=== PATIENT | female | born 1990 | race Caucasian/White ===

== ENCOUNTER → 2016-06-11 | Outpatient (CLI) | payer MEDICAID ==
--- NOTE | 2016-06-11 12:20 | ECHOS ---
DATE OF SERVICE: 06/11/2016 AGE: 25Y SEX: F HT: 59" WT: 145 lbs. Protocol Vahid: X Others: Stress Echo Stage: III Dur. of Exercise: 9 minutes *Heart Rate Blood Pressure *Rest: 98 Rest: 103/66 * *Max. Achieved: 171 Maximum BP: 188/44 85% PMHR: 165 100% PMHR: 194 *METS: 8.3 INDICATIONS: Chest pain and palpitations. MEDICATIONS: Mrs. Bunch is a 25-year-old female being evaluated for symptoms of palpitation and chest pain. Baseline EKG showed sinus rhythm with heart rate of 98 and blood pressure 103/66. Patient walked on the Vahid protocol for 9 minutes, achieving a maximum heart rate 171 with blood pressure of 188/44. EKGs taken during and after exercise did not reveal any significant changes from the baseline. There was significant artifacts on the EKG and also there is difficulty in acquiring echo images. ECHO DATA: Baseline echo images show normal wall motion and thickening. Exercise echo images showed augmentation wall motion and thickening in all the segments in spite of difficulty acquiring the images because of EKG artifacts. FINAL IMPRESSION: 1. Negative stress test. 2. Negative stress echo.
== END | disposition home or self-care (01) ==
LOC: RADNMMAIN 10:01
PROVIDERS: ATTEND Family Medicine
DX: R00.2 Palpitations (principal)
CPT/HCPCS: 93017; 93225; 93226; 93350

== ENCOUNTER 2016-08-24 22:34 | Emergency (ER) | payer MEDICAID ==
[2016-08-25] MEDS ORDERED: IPRATROPIUM-ALBUTEROL 3 ML NEB INHALATION STA (00:33)
--- NOTE | 2016-08-25 00:49 | ED ---
General Adult HPI - General Chief complaint: Chest Pain Stated complaint: Chest Pain Time Seen by Provider: 08/25/16 00:19 Source: patient, RN notes reviewed Mode of arrival: ambulatory Limitations: no limitations - History of Present Illness Initial comments: Patient is a 26-year-old female presents to the emergency room for evaluation of cough, congestion and chest pain. Patient states symptoms began today. Patient states she also has a sore throat. Patient states also had a constant dry cough. Patient states been developing midsternal chest pain is worse with deep breaths and coughing. Patient states been taking cough medicine with no relief of symptoms. Patient states she feels short of breath after coughing. Patient states the pain is worse every time she coughs or swallows. Patient denies abdominal pain, nausea vomiting. Patient does state she has a headache. Patient denies dizziness. Patient denies ear pain. Patient states she is up- to-date on all immunizations besides influenza vaccine. Patient states she has have a history of chest pain and palpitations. Patient states she saw her primary care provider about a month ago and had a Holter monitor, echocardiogram and stress test with no abnormal findings. Patient denies fevers or chills. - Related Data Home Medications Medication Instructions Recorded Confirmed Atenolol [Tenormin] 25 mg PO DAILY 08/24/16 08/24/16 HYDROcodone/APAP 5-325MG [[place] 1 tab PO DIRECTED PRN 08/24/16 08/24/16 5-325] Previous Rx's Medication Instructions Recorded Azithromycin [Zithromax Z-pack] 250 mg PO DIRECTED #6 tab 08/25/16 Ibuprofen [Motrin] 600 mg PO Q6HR PRN #20 tab 08/25/16 methylPREDNISolone [Medrol Dose 4 mg PO DIRECTED #1 pack 08/25/16 Pack] Allergies Allergy/AdvReac Type Severity Reaction Status Date / Time No Known Allergies Allergy Verified 08/24/16 22:45 Review of Systems ROS Statement: Those systems with pertinent positive or pertinent negative responses have been documented in the HPI. ROS Other: All systems not noted in ROS Statement are negative. Past Medical History Past Medical History: No Reported History History of Any Multi-Drug Resistant Organisms: None Reported Past Surgical History: Orthopedic Surgery Additional Past Surgical History / Comment(s): lt wrist ,tumor lt breast Past Psychological History: No Psychological Hx Reported Smoking Status: Never smoker Past Alcohol Use History: Occasional Past Drug Use History: None Reported General Exam - General Exam Comments Initial Comments: Sitting in exam room, no acute distress. Limitations: no limitations General appearance: alert, in no apparent distress Head exam: Present: atraumatic, normocephalic, normal inspection Eye exam: Present: normal appearance ENT exam: Present: normal exam, normal oropharynx, mucous membranes moist, TM's normal bilaterally, normal external ear exam Neck exam: Present: normal inspection Respiratory exam: Present: normal lung sounds bilaterally. Absent: respiratory distress Cardiovascular Exam: Present: regular rate, normal rhythm, normal heart sounds GI/Abdominal exam: Present: soft, normal bowel sounds. Absent: distended, tenderness, guarding, rebound, rigid Extremities exam: Present: normal inspection Back exam: Present: normal inspection Neurological exam: Present: alert, oriented X3, CN II-XII intact, normal gait Psychiatric exam: Present: normal affect, normal mood Skin exam: Present: warm, dry, intact, normal color. Absent: rash Course Vital Signs 08/24/16 08/25/16 08/25/16 22:43 00:44 00:51 Temperature 98.9 F Pulse Rate 69 77 77 Respiratory 20 Rate Blood Pressure 126/86 O2 Sat by Pulse 99 Oximetry 08/25/16 01:55 Temperature 98.1 F Pulse Rate 68 Respiratory 18 Rate Blood Pressure 118/79 O2 Sat by Pulse 100 Oximetry Medical Decision Making - Medical Decision Making Patient is a 26-year-old female presents to the emergency room for evaluation of cough, sore throat and chest pain. Rapid influenza negative. Rapid strep negative. Chest x-ray shows no acute findings. Will treat patient for bronchitis. Patient be placed on azithromycin and Medrol Dosepak. Advised patient to return for worsening symptoms. Patient states she seems everything that was discussed with her. Case discussed with Dr. Amezquita who also evaluated patient. - Lab Data Result diagrams: 08/25/16 00:44 Lab Results 08/25/16 08/25/16 08/25/16 Range/Units 00:44 00:44 00:44 WBC 13.9 H (3.8-10.6) k/uL RBC 4.09 (3.80-5.40) m/uL Hgb 13.0 (11.4-16.0) gm/dL Hct 39.1 (34.0-46.0) % MCV 95.6 (80.0-100.0) fL MCH 31.8 (25.0-35.0) pg MCHC 33.3 (31.0-37.0) g/dL RDW 12.8 (11.5-15.5) % Plt Count 217 (150-450) k/uL Neutrophils % 71 % Lymphocytes % 21 % Monocytes % 4 % Eosinophils % 2 % Basophils % 0 % Neutrophils # 9.9 H (1.3-7.7) k/uL Lymphocytes # 2.9 (1.0-4.8) k/uL Monocytes # 0.5 (0-1.0) k/uL Eosinophils # 0.3 (0-0.7) k/uL Basophils # 0.1 (0-0.2) k/uL Influenza Type A RNA Not Detected (Not Detectd) Influenza Type B (PCR) Not Detected (Not Detectd) Group A Strep Rapid Negative (Negative) - Radiology Data Radiology results: report reviewed, image reviewed Disposition Clinical Impression: Bronchitis, Pharyngitis Disposition: HOME SELF-CARE Condition: Good Instructions: Acute Bronchitis (ED) Additional Instructions: Take antibiotics as directed. Take Medrol Dosepak as directed. Take ibuprofen as needed for pain. Please follow up with primary care provider in 1-2 days. If any new symptom arises or symptoms worsen, return to ER as soon as possible. Prescriptions: Ibuprofen [Motrin] 600 mg PO Q6HR PRN #20 tab PRN Reason: Pain Azithromycin [Zithromax Z-pack] 250 mg PO DIRECTED #6 tab methylPREDNISolone [Medrol Dose Pack] 4 mg PO DIRECTED #1 pack Referrals: Edilson Farias MD [Primary Care Provider] - 1-2 days Time of Disposition: 01:24
[2016-08-25 00:55] LABS: Basophils # (A) 0.1 k/uL (0-0.2); Basophils % (A) 0 %; CH 32.3; Eosinophils # (A) 0.3 k/uL (0-0.7); Eosinophils % (A) 2 %; HCT 39.1 % (34.0-46.0); HDW 2.64; Luc # (Auto) 0.16; Luc % (Auto) 1; Lymphocytes # (A) 2.9 k/uL (1.0-4.8); Lymphocytes % (A) 21 %; MCH 31.8 pg (25.0-35.0); MCHC 33.3 g/dL (31.0-37.0); MCV 95.6 fL (80.0-100.0); Mean Platelet Volume 7.8; Monocytes # (A) 0.5 k/uL (0-1.0); Monocytes % (A) 4 %; Neutrophils # (A) 9.9 k/uL (1.3-7.7); Neutrophils % (A) 71 %; RBC 4.09 m/uL (3.80-5.40); RDW 12.8 % (11.5-15.5); WBC 13.9 k/uL (3.8-10.6); WBC (Perox) 14.31
--- NOTE | 2016-08-25 01:08 | XR ---
EXAM: XR Chest, 2 Views. CLINICAL HISTORY: Reason: Pain TECHNIQUE: Frontal and lateral views of the chest. COMPARISON: No relevant prior studies available. FINDINGS: Lungs: Unremarkable. No consolidation. Pleural spaces: Unremarkable. No pneumothorax. Heart: Unremarkable. No cardiomegaly. Mediastinum: Unremarkable. Bones: Unremarkable. No acute fracture. IMPRESSION: Normal chest.
[2016-08-25] MEDS ORDERED: methylPREDNISolone 4 MG TAB PO STA (01:26)
[2016-08-25 01:56] VITALS: BP 118/79; PULSE 68; RESP 18; TEMP 98.1
== END 2016-08-25 01:56 | disposition home or self-care (01) ==
LOC: EC 22:34
DX: J40 Bronchitis, not specified as acute or chronic (principal); J02.9 Acute pharyngitis, unspecified; Z79.899 Other long term (current) drug therapy
CPT/HCPCS: 99285; 36415; 94640; 93005; 85025; 87081; 87430; 87502; 71020; J7509

== ENCOUNTER → 2017-03-23 | Outpatient (CLI) | payer MEDICAID ==
--- NOTE | 2017-03-23 10:43 | MR ---
EXAMINATION TYPE: MR knee LT wo con DATE OF EXAM: 03/23/2017 COMPARISON: Plain film 02/06/2016 HISTORY: Left knee pain TECHNIQUE: Multiplanar, multisequence imaging of the left knee is performed without IV contrast. FINDINGS: MEDIAL MENISCUS: Anterior and posterior horns are intact without tear. There is some intrasubstance s ignal seen in the posterior horn of the medial meniscus without clear extension to the articular surf mehul which may represent some mucoid degeneration. LATERAL MENISCUS: Anterior and posterior horns are intact without tear. CRUCIATE LIGAMENTS: The anterior and posterior cruciate ligaments are intact and unremarkable. COLLATERAL LIGAMENTS: The medial collateral ligament and lateral collateral ligament complex are inta ct and unremarkable. EXTENSOR MECHANISM: Visualized quadriceps and patellar tendons are intact. EFFUSION: No significant suprapatellar joint effusion. POPLITEAL CYST: No popliteal/jimenez cyst. TRICOMPARTMENT SPACES: Within normal limits CARTILAGE: Question some minimal increased signal within the medial femoral condyle articular cartila ge on coronal image 17, 13 BONE MARROW SIGNAL: No focal abnormal marrow signal is appreciated. OTHER: No additional significant abnormality is appreciated. IMPRESSION: Difficult to exclude some grade 1 to grade II chondromalacia medial femoral condyle findings in the p osterior medial meniscus as described.
== END | disposition home or self-care (01) ==
LOC: RADMRIMAIN 08:36
PROVIDERS: ATTEND Family Medicine
DX: M23.92 Unspecified internal derangement of left knee (principal)

== ENCOUNTER → 2018-01-30 | Outpatient (CLI) | payer OTHER ==
--- NOTE | 2018-01-30 13:00 | MR ---
EXAMINATION TYPE: MR lumbar spine wo con DATE OF EXAM: 01/30/2018 9:10 AM COMPARISON: NONE HISTORY: Strain of muscle, fascia and tendon Multiplanar, MultiSpin echo imaging of the lumbar spine was performed. L1-L2: Normal disc appearance without desiccation. No herniation, protrusion or disc bulging. No ca nal stenosis is present. Foramina are patent bilaterally. L2-L3: Normal disc appearance without desiccation. No herniation, protrusion or disc bulging. No ca nal stenosis is present. Foramina are patent bilaterally. L3-L4: Normal disc appearance without desiccation. No herniation, protrusion or disc bulging. No ca nal stenosis is present. Foramina are patent bilaterally. L4-L5: Normal disc appearance without desiccation. No herniation, protrusion or disc bulging. No ca nal stenosis is present. Foramina are patent bilaterally. L5-S1: Moderate disc desiccation noted. Posterocentral and to the right subligamentous disc herniati on. Mild effacement ventral thecal sac. No evidence of lateral recess stenosis or central stenosis. F oramina are patent bilaterally. Lumbar segments are intact. No paraspinal masses are identified. Conus medullaris has a normal appe arance. IMPRESSION: 1. At L5 1 there is Moderate disc desiccation noted. Posterocentral and to the right subligamentous d isc herniation.
== END | disposition home or self-care (01) ==
LOC: RADMRIMAIN 08:37
PROVIDERS: ATTEND Physician Assistant
DX: M51.27 Other intervertebral disc displacement, lumbosacral region (principal)
CPT/HCPCS: 72148

== ENCOUNTER 2018-06-07 15:51 | Emergency (ER) | payer OTHER ==
[2018-06-07] MEDS ORDERED: SODIUM CHLORIDE 0.9% 1,000 ML IV ONE ×2 (17:10→18:53)
[2018-06-07] MEDS ORDERED: METOCLOPRAMIDE 5 MG/ML 2 ML VIAL IVP STA (17:11)
--- NOTE | 2018-06-07 17:19 | ED ---
General Adult HPI - General Chief complaint: Nausea/Vomiting/Diarrhea Stated complaint: vomiting/ 9.5 wks preg Time Seen by Provider: 06/07/18 16:43 Source: patient Mode of arrival: ambulatory Limitations: no limitations - History of Present Illness Initial comments: 27-year-old female no past medical history presenting today for chief complaint of nausea and vomiting. Patient states she is 9.5 weeks, she states she had an ultrasound EARLIER AT HER [facility] OFFICE, SHE STATES THERE IS NO ABNORMALITIES. PATIENT DENIES ANY ABDOMINAL PAIN OR CRAMPING. SHE DENIES ANY VAGINAL BLEEDING. PATIENT STATES SHE HAS HAD SOME ON-AND-OFF NAUSEA OR VOMITING WITH THIS HOWEVER IT HAS BEEN UNCONTROLLED FOR THE PAST WEEK FOR HOURS. PATIENT DENIES ANY FEVER, CHILLS, NIGHT SWEATS OR DIARRHEA. PATIENT DENIES ANY SICK CONTACTS. Remainder of ROS negative, patient denies any recent LE swelling , shortness of breath, chest pain, back pain, numbness or tingling, dysuria or hematuria, constipation or diarrhea, headaches or visual changes, or any other complaints. Upon arrival pt VS reveal elevation of HR remaining VS within normal limits. - Related Data Home Medications Medication Instructions Recorded Confirmed Ljy-Tnxe-Shmut Acid 1 cap PO DAILY 06/07/18 06/07/18 [-U Capsule (formulary)] Previous Rx's Medication Instructions Recorded Cephalexin [Keflex] 500 mg PO BID 5 Days #10 cap 06/07/18 Doxylamine Succinate [Unisom] 25 mg PO HS 7 Days #1 tablet 06/07/18 Doxylamine Succinate/Vit B6 1 each PO HS 7 Days #7 tab.ir. 06/07/18 [Bonjesta ER 20-20 mg Tablet] Pyridoxine HCl (Vitamin B6) 25 mg PO HS 7 Days #7 tablet 06/07/18 [Pyridoxine HCl] Allergies Allergy/AdvReac Type Severity Reaction Status Date / Time No Known Allergies Allergy Verified 06/07/18 17:07 Review of Systems ROS Statement: Those systems with pertinent positive or pertinent negative responses have been documented in the HPI. ROS Other: All systems not noted in ROS Statement are negative. Past Medical History Past Medical History: No Reported History History of Any Multi-Drug Resistant Organisms: None Reported Past Surgical History: Orthopedic Surgery Additional Past Surgical History / Comment(s): lt wrist ,tumor lt breast Past Psychological History: No Psychological Hx Reported Smoking Status: Never smoker Past Alcohol Use History: Occasional Past Drug Use History: None Reported General Exam - General Exam Comments Initial Comments: General: The patient is awake and alert, in no distress, and does not appear acutely ill. Eye: Pupils are equal, round and reactive to light, extra-ocular movements are intact. No nystagmus. There is normal conjunctiva bilaterally. No signs of icterus. Ears, nose, mouth and throat: There are moist mucous membranes and no oral lesions. Neck: The neck is supple, there is no tenderness or JVD. Cardiovascular: There is a regular rate and rhythm. No murmur, rub or gallop is appreciated. Respiratory: Lungs are clear to auscultation, respirations are non-labored, breath sounds are equal. No wheezes, stridor, rales, or rhonchi. Gastrointestinal: Soft, non-distended, non-tender abdomen without masses or organomegaly noted. There is no rebound or guarding present. No CVA tenderness. Bowel sounds are unremarkable. Musculoskeletal: Normal ROM, no tenderness. Strength 5/5. Sensation intact. Radial ulses equal bilaterally 2+. Neurological: A&O x 3. CN II-XII intact, There are no obvious motor or sensory deficits. Coordination appears grossly intact. Speech is normal. Skin: Skin is warm and dry and no rashes or lesions are noted. Tugor instant recoil. No lower extremity edema Psychiatric: Cooperative, appropriate mood & affect, normal judgment. Limitations: no limitations Course Vital Signs 06/07/18 06/07/18 06/07/18 16:03 18:08 21:13 Temperature 98.2 F 99 F Pulse Rate 111 H 87 86 Respiratory 16 18 18 Rate Blood Pressure 126/79 110/80 119/77 O2 Sat by Pulse 97 100 99 Oximetry Medical Decision Making - Medical Decision Making 19-year-old female 9.5 weeks with ultrasound performed earlier today by [facility], no abnormalities noted. Presenting for nausea, vomiting 24 hours. Pt states she cant keep anything down and cant take the nausea. Given IV fluids and Reglan. Patient reassessed. Patient states improvement in symptoms. Patient has mildly elevated white blood cell count, +3 ketones and urine. A sent back bacteremia. No leukocyte esterase or nitrates, culture pending. Patient be started on Keflex. Patient denies any abdominal cramping or vaginal bleeding. Patient given 2 L IV fluids. Patient would like to try outpatient treatment, stating that she now has feeling of nausea and vomiting being under control. Patient has had no additional episodes of emesis since arrival in the emergency department. Patient was able to tolerate by mouth intake upon PO challenge, drinking water and eating jello. All findings were discussed with patient, patient was given a prescription for ansom and b6, or decliguis. Pt was instructed to use on or the other NOT BOTH. One of the prescriptions can be expensive, and is why the alternative was provided. Pt verbalized understanding of this instruction. Pt requesting d/c. Patient was discharged instruction to follow-up with [facility] and primary care provider. Patient is to return to emergency department for any inability to tolerate by mouth intake or any other concerning symptoms. Or continuous nausea vomiting. Patient was agreeable with these return parameters and was discharged in stable condition. Case was discussed in detail with attending provider Dr. Kurtz. - Lab Data Result diagrams: 06/07/18 19:11 06/07/18 19:11 Lab Results 06/07/18 06/07/18 06/07/18 Range/Units 19:11 19:11 19:11 WBC 14.4 H (3.8-10.6) k/uL RBC 4.04 (3.80-5.40) m/uL Hgb 12.4 (11.4-16.0) gm/dL Hct 37.7 (34.0-46.0) % MCV 93.4 (80.0-100.0) fL MCH 30.7 (25.0-35.0) pg MCHC 32.8 (31.0-37.0) g/dL RDW 12.8 (11.5-15.5) % Plt Count 223 (150-450) k/uL Neutrophils % 88 % Lymphocytes % 9 % Monocytes % 3 % Eosinophils % 0 % Basophils % 0 % Neutrophils # 12.7 H (1.3-7.7) k/uL Lymphocytes # 1.2 (1.0-4.8) k/uL Monocytes # 0.4 (0-1.0) k/uL Eosinophils # 0.1 (0-0.7) k/uL Basophils # 0.0 (0-0.2) k/uL Sodium 136 L (137-145) mmol/L Potassium 4.2 (3.5-5.1) mmol/L Chloride 106 (98-107) mmol/L Carbon Dioxide 21 L (22-30) mmol/L Anion Gap 9 mmol/L BUN 9 (7-17) mg/dL Creatinine 0.52 (0.52-1.04) mg/dL Est GFR (CKD-EPI)AfAm >90 (>60 ml/min/1.73 sqM) Est GFR (CKD-EPI)NonAf >90 (>60 ml/min/1.73 sqM) Glucose 95 (74-99) mg/dL Calcium 8.9 (8.4-10.2) mg/dL Total Bilirubin 0.6 (0.2-1.3) mg/dL AST 19 (14-36) U/L ALT 25 (9-52) U/L Alkaline Phosphatase 64 (38-126) U/L Total Protein 6.9 (6.3-8.2) g/dL Albumin 3.9 (3.5-5.0) g/dL Urine Color Yellow Urine Appearance Cloudy H (Clear) Urine pH 6.5 (5.0-8.0) Ur Specific [place] 1.015 (1.001-1.035) Urine Protein Negative (Negative) Urine Glucose (UA) Negative (Negative) Urine Ketones 3+ H (Negative) Urine Blood Negative (Negative) Urine Nitrite Negative (Negative) Urine Bilirubin Negative (Negative) Urine Urobilinogen <2.0 (<2.0) mg/dL Ur Leukocyte Esterase Negative (Negative) Urine RBC 3 (0-5) /hpf Urine WBC 2 (0-5) /hpf Ur Squamous Epith Cells 7 H (0-4) /hpf Urine Bacteria Occasional H (None) /hpf Urine Mucus Rare H (None) /hpf Disposition Clinical Impression: Asymptomatic bacteriuria during , Ketonuria, Nausea and vomiting during prior to 22 weeks gestation Disposition: HOME SELF-CARE Condition: Good Instructions (If sedation given, give patient instructions): Nausea and Vomiting in (ED) Additional Instructions: Please use medication as discussed. Please follow-up with family doctor in the next 2 days, please follow-up with OBGYN in next week. Please return to emergency room if the symptoms increase or worsen or for any other concerns, including return for inability to tolerate PO intake. Prescriptions: Cephalexin [Keflex] 500 mg PO BID 5 Days #10 cap Doxylamine Succinate [Unisom] 25 mg PO HS 7 Days #1 tablet Doxylamine Succinate/Vit B6 [Bonjesta ER 20-20 mg Tablet] 1 each PO HS 7 Days # 7 tab.ir. Pyridoxine HCl (Vitamin B6) [Pyridoxine HCl] 25 mg PO HS 7 Days #7 tablet Is patient prescribed a controlled substance at d/c from ED?: No Referrals: Edilson Farias MD [Primary Care Provider] - 1-2 days Time of Disposition: 20:17
[2018-06-07 18:09] VITALS: RESP 18
[2018-06-07] MEDS ORDERED: PYRIDOXINE 50 MG TAB PO STA (18:53)
[2018-06-07 19:29] LABS: Basophils % (A) 0 %; Eosinophils # (A) 0.1 k/uL (0-0.7); Eosinophils % (A) 0 %; HCT 37.7 % (34.0-46.0); HGB 12.4 gm/dL (11.4-16.0); Lymphocytes # (A) 1.2 k/uL (1.0-4.8); Lymphocytes % (A) 9 %; MCH 30.7 pg (25.0-35.0); MCHC 32.8 g/dL (31.0-37.0); MCV 93.4 fL (80.0-100.0); Mean Platelet Volume 7.6; Monocytes # (A) 0.4 k/uL (0-1.0); Monocytes % (A) 3 %; Neutrophils # (A) 12.7 k/uL (1.3-7.7); Neutrophils % (A) 88 %; Platelet Count 223 k/uL (150-450); RBC 4.04 m/uL (3.80-5.40); RDW 12.8 % (11.5-15.5); WBC 14.4 k/uL (3.8-10.6)
[2018-06-07 19:37] LABS: Potassium 4.2 mmol/L (3.5-5.1)
[2018-06-07 19:38] LABS: ALT 25 U/L (9-52); AST 19 U/L (14-36); Albumin 3.9 g/dL (3.5-5.0); Alkaline Phosphatase 64 U/L (38-126); Anion Gap 9 mmol/L; Blood Urea Nitrogen 9 mg/dL (7-17); Calcium 8.9 mg/dL (8.4-10.2); Carbon Dioxide 21 mmol/L (22-30); Chloride 106 mmol/L (98-107); Glucose 95 mg/dL (74-99); Sodium 136 mmol/L (137-145); Total Bilirubin 0.6 mg/dL (0.2-1.3); Total Protein 6.9 g/dL (6.3-8.2)
[2018-06-07 19:42] LABS: Appearance,Urine Cloudy (Clear); Bacteria,Urine Occasional /hpf; Bilirubin,Urine Negative (Negative); Blood,Urine Negative (Negative); Color,Urine Yellow; Glucose,Urine (UA) Negative (Negative); Ketones,Urine 3+ (Negative); Leukocyte Esterase,Urine Negative (Negative); Mucus,Urine Rare /hpf; Nitrite,Urine Negative (Negative); PH, Urine 6.5 (5.0-8.0); Protein,Urine Negative (Negative); RBC,Urine 3 /hpf (0-5); Specific Gravity,Urine 1.015 (1.001-1.035); Squamous Epithelial Cell,Urine 7 /hpf (0-4); Urobilinogen,Urine <2.0 mg/dL (<2.0); WBC,Urine 2 /hpf (0-5)
[2018-06-07 21:15] VITALS: BP 119/77; PULSE 86; TEMP 99
== END 2018-06-07 21:13 | disposition home or self-care (01) ==
LOC: EC 15:51
DX: O21.9 Vomiting of pregnancy, unspecified (principal); O99.89 Other specified diseases and conditions complicating pregnancy, childbirth and the puerperium; R82.4 Acetonuria; R82.71 Bacteriuria; Z3A.09 9 weeks gestation of pregnancy; Z98.890 Other specified postprocedural states
CPT/HCPCS: 36415; 80053; 85025; 81001; 99284; 96374; 96361 ×2; J2765

== ENCOUNTER 2018-11-20 09:43 | Outpatient (CLI) | payer OTHER ==
[2018-11-20] MEDS ORDERED: DEXTROSE 5%-LACTATED RINGERS 1,000 ML IV SCH (10:45)
[2018-11-20 10:53] LABS: Basophils % (A) 0 %; Eosinophils # (A) 0.1 k/uL (0-0.7); Eosinophils % (A) 1 %; HCT 33.9 % (34.0-46.0); HGB 10.9 gm/dL (11.4-16.0); Lymphocytes # (A) 1.9 k/uL (1.0-4.8); Lymphocytes % (A) 17 %; MCH 30.6 pg (25.0-35.0); MCHC 32.3 g/dL (31.0-37.0); Mean Platelet Volume 7.9; Monocytes # (A) 0.4 k/uL (0-1.0); Monocytes % (A) 3 %; Neutrophils # (A) 8.6 k/uL (1.3-7.7); Neutrophils % (A) 77 %; Platelet Count 224 k/uL (150-450); RBC 3.57 m/uL (3.80-5.40); RDW 12.9 % (11.5-15.5); WBC 11.2 k/uL (3.8-10.6)
[2018-11-20 11:00] LABS: Appearance,Urine Cloudy (Clear); Bilirubin,Urine Negative (Negative); Blood,Urine Negative (Negative); Color,Urine Yellow; Glucose,Urine (UA) Negative (Negative); Ketones,Urine Negative (Negative); Leukocyte Esterase,Urine Large (Negative); Mucus,Urine Few /hpf; Nitrite,Urine Negative (Negative); Protein,Urine Trace (Negative); RBC,Urine 1 /hpf (0-5); Specific Gravity,Urine 1.012 (1.001-1.035); Squamous Epithelial Cell,Urine 3 /hpf (0-4); Urobilinogen,Urine <2.0 mg/dL (<2.0); WBC,Urine 6 /hpf (0-5)
[2018-11-20] MEDS ORDERED: LACTATED RINGERS 1,000 ML IV SCH (11:45)
[2018-11-20 12:49] VITALS: BP 122/84; PULSE 78; RESP 18; TEMP 97
--- NOTE | 2018-12-12 15:32 | P.MSEPDOC ---
Presenting Problems - Arrival Data Date of Arrival on Unit: 11/20/18 Time of Arrival on Unit: 09:43 Mode of Transport: Wheelchair - Complaint OB-Reason for Admission/Chief Complaint: Possible Onset of Labor Comment: pt presents for cramping and contractions Medical History - Information : 2 Para: 1 Term: 1 : 0 Abortions: Spontaneous or Elective: 0 Number of Living Children: 1 - Gestational Age Gestational Age by NATACHA (wks/days): 33 Weeks and 1 Days Review of Systems - Review of Systems Constitutional: No problems Breast: No problems ENT: No problems Cardiovascular: No problems Respiratory: No problems Gastrointestinal: No problems Genitourinary: No problems Musculoskeletal: No problems Neurological: No problems Skin: No problems Vital Signs - Temperature Temperature: 97.0 F Temperature Source: Temporal Artery Scan - Pulse Right Brachial Pulse Rate: 78 Pulse Assessment Method: Automatic Cuff - Respirations Respiratory Rate: 18 Oxygen Delivery Method: Room Air - Blood Pressure Right Arm Blood Pressure: 122/84 Blood Pressure Mean: 96 Blood Pressure Source: Automatic Cuff Medical Screen Scoring (Pre) - Cervical Exam Dilation: 0 cm = 0 Effacement: Exam Deferred Membranes: Intact - Uterine Contractions Frequency: < 36 weeks = 6 Duration: > 40 seconds = 2 Intensity: Contraction palpated strong = 1 - Maternal Vital Signs Maternal Temperature: N/A Maternal Blood Pressure: N/A Signs of Preeclampsia: N/A Maternal Respirations: N/A - Maternal Trauma Maternal Trauma: N/A - Assessment - Baby A Baseline FHR: 130 Heart Rate - NICHD Category: Category I (Normal) = 0 NST: Reactive Position: N/A Station: N/A - Total Score - Baby A Total Score - Baby A: 9 - Total Score - Baby B Total Score - Baby B: 9 - Total Score - Baby C Total Score - Baby C: 9 - Level of Risk - Baby A Level of Risk - Baby A: Medium (6-9) - Level of Risk - Baby B Level of Risk - Baby B: Medium (6-9) - Level of Risk - Baby C Level of Risk - Baby C: Medium (6-9) Physician Notification (Pre) - Physician Notified Physician Notified Date: 11/20/18 Physician Notified Time: 10:19 Physician/Practitioner Notifed:: Dr. Monterroso Spoke With: Dr. Monterroso New Order Received: Yes - Notification Comment Comment: send ua, cbc, ffn and give D5LR 1 liter, call with results of labs Medical Screen Scoring (Post) - Cervical Exam Dilation: Exam Deferred Effacement: Exam Deferred Membranes: Intact - Uterine Contractions Frequency: > 5 minutes apart = 1 Duration: > 40 seconds = 2 Intensity: N/A - Maternal Vital Signs Maternal Temperature: N/A Maternal Blood Pressure: N/A Signs of Preeclampsia: N/A Maternal Respirations: N/A - Pain Assessment Pain Scale Used: Numeric (1 - 10) Pain Intensity: 3 Pain Description: *Acute, Cramping Pain Frequency: Intermittent Pain Duration: 1 Pain Duration Units: Hours Pain Behavior: None Exhibited Pain Aggravating Factors: Contractions - Maternal Trauma Maternal Trauma: N/A - Assessment - Baby A Heart Rate: 130 Heart Rate - NICHD Category: Category I (Normal) = 0 NST: Reactive Position: N/A Station: N/A - Total Score Total Score - Baby A: 3 Total Score - Baby B: 3 Total Score - Baby C: 3 - Post Treatment Level of Risk Post Treatment Level of Risk - Baby A: Low (0-5) Post Treatment Level of Risk - Baby B: Low (0-5) Post Treatment Level of Risk - Baby C: Low (0-5) Physician Notification (Post) - Physician Notified Physician Notified Date: 11/20/18 Physician Notified Time: 11:55 Physician/Practitioner Notified:: Dr. Monterroso Spoke With: Dr. Monterroso New Order Received: Yes - Notification Comment Comment: given another liter of just LR, Dr. Monterroso came in to see pt at bedside, she performed cervical exam, closed and thick, discharge pt home on pelvic rest, increase fluids, off work tomorrow and follow up with Dr. Monterroso on Tuesday in office Disposition - Disposition OB Disposition: Physician follow up in office, Triage, Discharge to home, Written follow up instructions reviewed Discharge Date: 11/20/18 Discharge Time: 12:25 I agree with the RN Medical Screening Exam: Yes Risk & Benefit of care provided described in d/c instruction: Yes Diagnosis: FALSE LABOR BEFORE 37 COMPLETED WEEKS OF GEST, THIRD TRI
== END 2018-11-20 12:25 | disposition home or self-care (01) ==
LOC: FBPOP 09:43
PROVIDERS: ATTEND Obstetrics & Gynecology
DX: O47.03 False labor before 37 completed weeks of gestation, third trimester (principal); Z3A.33 33 weeks gestation of pregnancy
CPT/HCPCS: 59025; 81001; 82731; 85025; 87086; 96360; 96361; 99214

== ENCOUNTER 2018-12-12 12:21 | Outpatient (CLI) | payer OTHER ==
[2018-12-12] MEDS ORDERED: ACETAMINOPHEN IV (For NPO) 1,000 MG in EMPTY BAG 1 BAG IVPB ONE (13:27)
[2018-12-12] MEDS ORDERED: ONDANSETRON 4 MG/2 ML VIAL IVP STA (13:28)
[2018-12-12] MEDS ORDERED: DEXTROSE 5%-LACTATED RINGERS 1,000 ML IV SCH ×2 (13:30)
[2018-12-12 16:36] VITALS: BP 117/61; PULSE 90; RESP 18; TEMP 98.7
--- NOTE | 2018-12-14 04:56 | P.MSEPDOC ---
Presenting Problems - Arrival Data Date of Arrival on Unit: 12/12/18 Time of Arrival on Unit: 12:20 Mode of Transport: Ambulatory - Complaint OB-Reason for Admission/Chief Complaint: Possible Onset of Labor, Acute Nausea/Vomiting, Headache Medical History - Information : 2 Para: 1 Term: 1 : 0 Abortions: Spontaneous or Elective: 0 Number of Living Children: 1 - Gestational Age Gestational Age by NATACHA (wks/days): 36 Weeks and 2 Days Review of Systems - Review of Systems Constitutional: No problems Breast: No problems ENT: No problems Cardiovascular: No problems Respiratory: No problems Genitourinary: No problems Musculoskeletal: No problems Neurological: No problems Skin: No problems Comment: n/v/d, headache. cramping Vital Signs - Temperature Temperature: 98.7 F Temperature Source: Oral - Pulse Right Brachial Pulse Rate: 90 Pulse Assessment Method: Automatic Cuff - Respirations Respiratory Rate: 18 Oxygen Delivery Method: Room Air O2 Sat by Pulse Oximetry: 98 - Blood Pressure Right Arm Blood Pressure: 117/61 Blood Pressure Mean: 79 Blood Pressure Source: Automatic Cuff Medical Screen Scoring (Pre) - Cervical Exam Dilation: 1-3 cm = 1 Membranes: Intact - Uterine Contractions Frequency: N/A Duration: N/A Intensity: N/A - Maternal Vital Signs Maternal Temperature: N/A Maternal Blood Pressure: N/A Signs of Preeclampsia: Headache = 1 Maternal Respirations: N/A - Maternal Trauma Maternal Trauma: N/A - Assessment - Baby A Baseline FHR: 155 Heart Rate - NICHD Category: Category I (Normal) = 0 NST: Reactive Position: N/A Station: N/A - Total Score - Baby A Total Score - Baby A: 2 - Total Score - Baby B Total Score - Baby B: 2 - Total Score - Baby C Total Score - Baby C: 2 - Level of Risk - Baby A Level of Risk - Baby A: Low (0-5) - Level of Risk - Baby B Level of Risk - Baby B: Low (0-5) - Level of Risk - Baby C Level of Risk - Baby C: Low (0-5) Physician Notification (Pre) - Physician Notified Spoke With: dennis New Order Received: Yes - Notification Comment Comment: discharge home. to keep appt tomorrow am as scheduled Medical Screen Scoring (Post) - Cervical Exam Dilation: 1-3 cm = 1 Membranes: Intact - Uterine Contractions Frequency: N/A Duration: N/A Intensity: N/A - Maternal Vital Signs Maternal Temperature: N/A Signs of Preeclampsia: N/A Maternal Respirations: N/A - Pain Assessment Pain Location and Character: Head, Abdomen Pain Scale Used: Numeric (1 - 10) Pain Intensity: 3 Pain Description: *Acute Pain Frequency: Intermittent Pain Behavior: None Exhibited, Vocalization Pain Aggravating Factors: Activity, Contractions Non-Pharmacological Interventions: Darkened Room - Maternal Trauma Maternal Trauma: N/A - Assessment - Baby A Heart Rate: 125 Heart Rate - NICHD Category: Category I (Normal) = 0 NST: Reactive Position: N/A Station: N/A - Total Score Total Score - Baby A: 1 Total Score - Baby B: 1 Total Score - Baby C: 1 - Post Treatment Level of Risk Post Treatment Level of Risk - Baby A: Low (0-5) Post Treatment Level of Risk - Baby B: N/A Post Treatment Level of Risk - Baby C: N/A Physician Notification (Post) - Physician Notified Physician Notified Date: 12/12/18 Physician Notified Time: 15:55 Spoke With: dennis Rene Order Received: Yes - Notification Comment Comment: discharge Disposition - Disposition OB Disposition: Physician follow up in office, Discharge to home Discharge Date: 12/12/18 Discharge Time: 16:00 I agree with the RN Medical Screening Exam: Yes Risk & Benefit of care provided described in d/c instruction: Yes Diagnosis: FALSE LABOR BEFORE 37 COMPLETED WEEKS OF GEST, THIRD TRI
== END 2018-12-12 16:00 | disposition home or self-care (01) ==
LOC: FBPOP 12:21
PROVIDERS: ATTEND Obstetrics & Gynecology
DX: O47.03 False labor before 37 completed weeks of gestation, third trimester (principal); Z3A.36 36 weeks gestation of pregnancy; R51 Headache; R11.2 Nausea with vomiting, unspecified
CPT/HCPCS: 59025; 96360; 96361; 96366; 96375; G0463; J2405; J0131; 99214

== ENCOUNTER 2018-12-25 12:41 | Outpatient (CLI) | payer OTHER ==
[2018-12-25 13:20] VITALS: BP 132/87; PULSE 86; RESP 18; TEMP 99.2
--- NOTE | 2019-01-03 15:54 | P.MSEPDOC ---
Presenting Problems - Arrival Data Date of Arrival on Unit: 12/25/18 Time of Arrival on Unit: 12:45 Mode of Transport: Ambulatory - Complaint OB-Reason for Admission/Chief Complaint: Rule Out SROM Medical History - Information : 2 Para: 1 Term: 1 : 0 Abortions: Spontaneous or Elective: 0 Number of Living Children: 1 - Gestational Age Gestational Age by NATACHA (wks/days): 38 Weeks and 1 Days Review of Systems - Review of Systems Constitutional: No problems Breast: No problems ENT: No problems Cardiovascular: No problems Respiratory: No problems Gastrointestinal: No problems Genitourinary: No problems Musculoskeletal: No problems Neurological: No problems Skin: No problems Vital Signs - Temperature Temperature: 99.2 F Temperature Source: Oral - Pulse Right Sitting Brachial Pulse Rate: 86 Pulse Assessment Method: Automatic Cuff - Respirations Respiratory Rate: 18 Oxygen Delivery Method: Room Air O2 Sat by Pulse Oximetry: 97 - Blood Pressure Right Arm Sitting Blood Pressure: 132/87 Blood Pressure Mean: 102 Blood Pressure Source: Automatic Cuff Medical Screen Scoring (Pre) - Cervical Exam Dilation: 1-3 cm = 1 Effacement: More than 50% = 2 Membranes: Intact - Uterine Contractions Frequency: > 5 minutes apart = 1 Duration: > 40 seconds = 2 Intensity: N/A - Maternal Vital Signs Maternal Temperature: N/A Maternal Blood Pressure: N/A Signs of Preeclampsia: N/A Maternal Respirations: N/A - Maternal Trauma Maternal Trauma: N/A - Assessment - Baby A Baseline FHR: 130 Heart Rate - NICHD Category: Category I (Normal) = 0 NST: Reactive Position: N/A Station: N/A - Total Score - Baby A Total Score - Baby A: 6 - Total Score - Baby B Total Score - Baby B: 6 - Total Score - Baby C Total Score - Baby C: 6 - Level of Risk - Baby A Level of Risk - Baby A: Medium (6-9) - Level of Risk - Baby B Level of Risk - Baby B: Medium (6-9) - Level of Risk - Baby C Level of Risk - Baby C: Medium (6-9) Physician Notification (Pre) - Physician Notified Physician Notified Date: 12/25/18 Physician Notified Time: 13:15 Physician/Practitioner Notifed:: dr monterroso Spoke With: dr monterroso New Order Received: Yes - Notification Comment Comment: dc home. pt to follow up in the office with dr Monterroso on Tuesday. Disposition - Disposition OB Disposition: Physician follow up in office, Discharge to home Discharge Date: 12/25/18 Discharge Time: 13:22 I agree with the RN Medical Screening Exam: Yes Risk & Benefit of care provided described in d/c instruction: Yes Diagnosis: FALSE LABOR AT OR AFTER 37 COMPLETED WEEKS OF GESTATION
== END 2018-12-25 13:27 | disposition home or self-care (01) ==
LOC: FBPOP 12:41
PROVIDERS: ATTEND Obstetrics & Gynecology
DX: O47.1 False labor at or after 37 completed weeks of gestation (principal); Z3A.38 38 weeks gestation of pregnancy
CPT/HCPCS: 59025; 84112; G0463; 99213

== ENCOUNTER 2019-01-01 16:08 | Outpatient (CLI) | payer OTHER ==
[2019-01-01 17:34] VITALS: BP 125/89; PULSE 104; RESP 16; TEMP 97.9
--- NOTE | 2019-01-03 16:00 | P.MSEPDOC ---
Presenting Problems - Arrival Data Date of Arrival on Unit: 01/01/19 Time of Arrival on Unit: 16:08 Mode of Transport: Ambulatory - Complaint OB-Reason for Admission/Chief Complaint: Pain Medical History - Information : 2 Para: 1 Term: 1 : 0 Abortions: Spontaneous or Elective: 0 Number of Living Children: 1 - Gestational Age Gestational Age by NATACHA (wks/days): 39 Weeks and 1 Days Review of Systems - Review of Systems Constitutional: No problems Breast: No problems ENT: No problems Cardiovascular: No problems Respiratory: No problems Gastrointestinal: No problems Genitourinary: No problems Musculoskeletal: No problems Neurological: No problems Skin: No problems Vital Signs - Temperature Temperature: 97.9 F Temperature Source: Tympanic - Pulse Right Brachial Pulse Rate: 104 Pulse Assessment Method: Automatic Cuff - Respirations Respiratory Rate: 16 Oxygen Delivery Method: Room Air - Blood Pressure Right Arm Blood Pressure: 125/89 Blood Pressure Mean: 101 Blood Pressure Source: Automatic Cuff Medical Screen Scoring (Pre) - Cervical Exam Dilation: 4-7 cm = 2 Membranes: Intact - Uterine Contractions Frequency: > 5 minutes apart = 1 Duration: N/A Intensity: N/A - Maternal Vital Signs Maternal Temperature: N/A Maternal Blood Pressure: N/A Signs of Preeclampsia: N/A Maternal Respirations: N/A - Maternal Trauma Maternal Trauma: N/A - Assessment - Baby A Baseline FHR: 135 Heart Rate - NICHD Category: Category I (Normal) = 0 NST: Reactive Position: N/A Station: N/A - Total Score - Baby A Total Score - Baby A: 3 - Total Score - Baby B Total Score - Baby B: 3 - Total Score - Baby C Total Score - Baby C: 3 - Level of Risk - Baby A Level of Risk - Baby A: Low (0-5) - Level of Risk - Baby B Level of Risk - Baby B: Low (0-5) - Level of Risk - Baby C Level of Risk - Baby C: Low (0-5) Physician Notification (Pre) - Physician Notified Physician Notified Date: 01/01/19 Physician Notified Time: 16:30 Physician/Practitioner Notifed:: Dr. Monterroso Spoke With: Dr. Monterroso New Order Received: Yes - Notification Comment Comment: D/C home Disposition - Disposition OB Disposition: Physician follow up in office Discharge Date: 01/01/19 Discharge Time: 17:15 I agree with the RN Medical Screening Exam: Yes Risk & Benefit of care provided described in d/c instruction: Yes Diagnosis: FALSE LABOR AT OR AFTER 37 COMPLETED WEEKS OF GESTATION
== END 2019-01-01 17:15 | disposition home or self-care (01) ==
LOC: FBPOP 16:08
PROVIDERS: ATTEND Obstetrics & Gynecology
DX: O47.1 False labor at or after 37 completed weeks of gestation (principal); Z3A.39 39 weeks gestation of pregnancy
CPT/HCPCS: 59025; G0463; 99213

== ENCOUNTER 2019-01-04 06:00 | Inpatient (IN) | payer OTHER ==
[2019-01-04] MEDS ORDERED: METHYLERGONOVINE 0.2 MG/ML 1 ML AMP IM PRN (06:17)
[2019-01-04] MEDS ORDERED: TERBUTALINE 1 MG/ML VIAL SQ PRN (06:17)
[2019-01-04] MEDS ORDERED: LIDOCAINE 0.5% (PF) 5 MG/ML (50 ML SDV) SQ PRN (06:17)
[2019-01-04] MEDS ORDERED: CARBOPROST TROMETHAMINE 250 MCG/ML 1 ML AMP IM PRN (06:17)
[2019-01-04] MEDS ORDERED: PENICILLIN G POTASSIUM 5,000,000 UNIT in DEXTROSE 5% IN WATER 100 ML IVPB STA ×4 (06:17→07:26)
[2019-01-04] MEDS ORDERED: OXYTOCIN 10 UNIT/ML 1 ML VIAL IM PRN (06:17)
[2019-01-04] MEDS ORDERED: LACTATED RINGERS 1,000 ML IV SCH (06:30)
[2019-01-04] MEDS ORDERED: OXYTOCIN 30 UNITS/500 ML NS 30 UNIT in SALINE 1 500ML.BAG IV SCH (06:30)
[2019-01-04 06:33] VITALS: BMI 33.9
[2019-01-04 07:18] LABS: Basophils % (A) 0 %; Eosinophils # (A) 0.1 k/uL (0-0.7); Eosinophils % (A) 1 %; HCT 34.9 % (34.0-46.0); HGB 11.1 gm/dL (11.4-16.0); Lymphocytes % (A) 22 %; MCH 29.8 pg (25.0-35.0); MCHC 31.8 g/dL (31.0-37.0); MCV 93.5 fL (80.0-100.0); Mean Platelet Volume 7.8; Monocytes # (A) 0.6 k/uL (0-1.0); Monocytes % (A) 4 %; Neutrophils # (A) 9.7 k/uL (1.3-7.7); Neutrophils % (A) 71 %; Platelet Count 279 k/uL (150-450); RBC 3.73 m/uL (3.80-5.40); RDW 13.5 % (11.5-15.5); WBC 13.6 k/uL (3.8-10.6)
[2019-01-04] MEDS ORDERED: fentaNYL (PF) 50 MCG/ML 5 ML AMP ONE (07:25)
[2019-01-04] MEDS ORDERED: SODIUM CHLORIDE 0.9% 100 ML BAG ONE (07:25)
[2019-01-04] MEDS ORDERED: ROPIVACAINE 5MG/ML 20ML VIAL ONE (07:25)
--- NOTE | 2019-01-04 07:26 | P.HPOB ---
History of Present Illness H&P Date: 01/04/19 This is a 28-year-old white female 2 para 1001 EDC 01/07/2019 at 39-3/7 weeks' gestation. Patient presents for induction for external hemorrhoids, increasing in severity of pain. In addition, she has a favorable multiparous cervix. Fetus is been active throughout the . She denies fluid leakage or vaginal bleeding. Past medical history is significant for migraine headaches, anxiety, abnormal Pap smear in 2018. Past surgical history colposcopy, fibroadenoma excised of the left breast in 2010. Current medications vitamins daily. ALLERGIES none known. Family history significant for hypertension and CVA. Obstetric history significant for vaginal delivery 2008, 7 lbs. 2 oz. , unremarkable. Social history patient is single, boyfriend is present and involved. She is never been a tobacco smoker, she denies alcohol or drug use. history significant for blood type O+, rubella status immune. Pap smear showing low-grade change. VDRL testing, urine culture, hepatitis B surface antigen, HIV testing, gonorrhea and chlamydia cultures all negative. One-hour Glucola 133. Group B strep cultures positive. On exam this is a pleasant white female who is 4 foot 11 inches, 168 pounds, admitting blood pressure 133/78. The general physical exam is within normal limits. Patient does have 2 enlarged external hemorrhoids, nonthrombosed. Cervix is 4 cm dilated, 70% effaced, -2 station, vertex presentation. Artificial amniorrhexis reveals clear fluid. heart rate is consistent with reactive NST. Impression: 39-3/7 weeks intrauterine , favorable multiparous cervix, painful external hemorrhoids, positive group B strep cultures. Here for elective induction, all signs reassuring. Plan: Oxytocin per hospital protocol. Epidural may be placed at patient's request. Penicillin G prophylaxis has been ordered. Close maternal and surveillance. Anticipate normal spontaneous vaginal delivery. Review of Systems Constitutional: Reports as per HPI Past Medical History Past Medical History: No Reported History History of Any Multi-Drug Resistant Organisms: None Reported Past Surgical History: Orthopedic Surgery Additional Past Surgical History / Comment(s): lt wrist ,tumor lt breast Past Anesthesia/Blood Transfusion Reactions: No Reported Reaction Past Psychological History: No Psychological Hx Reported Smoking Status: Never smoker Past Alcohol Use History: None Reported Past Drug Use History: None Reported - Past Family History Father Family Medical History: CVA/TIA, Hypertension Medications and Allergies Home Medications Medication Instructions Recorded Confirmed Type Rxe-Lpht-Wsasm Acid 1 cap PO DAILY 06/07/18 01/04/19 History [-U Capsule (formulary)] Calcium Carbonate [Tums] 500 mg PO TID 12/12/18 01/04/19 History Acetaminophen [Tylenol] 650 mg PO Q4H 01/01/19 01/04/19 History Hydrocortisone Cream 1 applic TOPICAL DIRECTED PRN 01/01/19 01/04/19 History [Hydrocortisone 2.5% Cream] Acetaminophen with Codeine 1 tablet PO Q6HR PRN 01/04/19 01/04/19 History [Tylenol w/codeine #3] Allergies Allergy/AdvReac Type Severity Reaction Status Date / Time No Known Allergies Allergy Verified 01/04/19 06:13 Exam Vital Signs Temp Pulse Resp BP Pulse Ox 01/04/19 06:12 97.2 F L 107 H 16 133/78 98 Intake and Output 01/03/19 01/04/19 01/04/19 22:59 06:59 14:59 Other: Weight 76.204 kg See dictation under HPI please Results Result Diagrams: 01/04/19 06:38 Abnormal Lab Results - Last 24 Hours (Table) 01/04/19 Range/Units 06:38 WBC 13.6 H (3.8-10.6) k/uL RBC 3.73 L (3.80-5.40) m/uL Hgb 11.1 L (11.4-16.0) gm/dL Neutrophils # 9.7 H (1.3-7.7) k/uL Assessment and Plan Assessment: 39-3/7 weeks intrauterine , painful external hemorrhoids, positive group B strep cultures. Favorable multiparous cervix. Plan: Penicillin G per prophylaxis. Oxytocin per hospital protocol. Close maternal and surveillance. Anticipate normal spontaneous vaginal delivery. Time with Patient: Less than 30
[2019-01-04] MEDS ORDERED: ROPIVACAINE 100 MG, fentaNYL (PF) 200 MCG in SODIUM CHLORIDE 0.9% 76 ML EPIDURAL ONE (07:52)
[2019-01-04] MEDS ORDERED: PENICILLIN G POTASSIUM 2,500,000 UNIT in DEXTROSE 5% IN WATER 100 ML IVPB SCH ×4 (10:18→12:00)
[2019-01-04] MEDS ORDERED: HYDROCORTISONE 2.5% RECTAL CREAM 30 GM TUBE RECTAL PRN (11:03)
[2019-01-04] MEDS ORDERED: ZOLPIDEM 5 MG TAB PO PRN (11:03)
[2019-01-04] MEDS ORDERED: ACETAMINOPHEN TAB 325 MG TAB PO PRN (11:03)
[2019-01-04] MEDS ORDERED: SIMETHICONE 80 MG CHEWABLE PO PRN (11:03)
[2019-01-04] MEDS ORDERED: diphenhydrAMINE 50 MG CAP PO PRN (11:03)
[2019-01-04] MEDS ORDERED: diphenhydrAMINE 25 MG CAP PO PRN (11:03)
[2019-01-04] MEDS ORDERED: BENZOCAINE/MENTHOL SPRAY 1 GM/SPRAY AEROSOL TOPICAL PRN (11:03)
[2019-01-04] MEDS ORDERED: LANOLIN CREAM 5 GM TUBE TOPICAL PRN (11:03)
[2019-01-04] MEDS ORDERED: diphenhydrAMINE 50 MG/ML 1 ML VIAL IVP PRN ×2 (11:03)
[2019-01-04] MEDS ORDERED: WITCH HAZEL 1 EACH MED..PAD TOPICAL PRN (11:03)
--- NOTE | 2019-01-04 11:03 | P.PROBDLV ---
Vaginal Delivery Note - . Vaginal Delivery Note: This is a 28-year-old white female 2 para 1001 EDC 01/07/2019 at 39-3/7 weeks' gestation. Patient presented with favorable multiparous cervix for induction of labor, with extremely tender external hemorrhoids. Group B strep cultures positive. otherwise unremarkable, blood type O positive. Please see admitting H&P for details. Artificial amniorrhexis revealed clear fluid. Epidural was placed per her request. Oxytocin was started and titrated per hospital protocol. She progressed well through the first stage of labor was judged to be completely dilated at 1036 hours. Perineal body was prepped and draped in usual sterile fashion. Penicillin G was given only 1 dose. With excellent maternal expulsive efforts the head delivered occiput anterior and she restituted accordingly. There was no nuchal cord noted. The right or anterior shoulder was gently and easily delivered from underneath the pubic symphysis at which time the oropharynx, nasopharynx, and external nares were bulb suctioned on the perineal body. Patient was officially delivered of a liveborn female at 1048 hours. Umbilical cord was doubly clamped and ligated, she was handed to waiting nurses for evaluation where scores of 9 and 9 at one and 5 minutes respectively were given. Placenta delivered spontaneously at 1051 hours. It was inspected and noted to be intact with trivascular cord. Uterus is then massaged. Inspection of the cervix, vagina, perineum, periurethral, and perirectal areas revealed hemorrhoids that are actually reduced at this time, along with a first-degree perineal laceration at 6:00. This is reapproximated using 3-0 Vicryl with a single [id number] suture. Total estimated blood loss 250 mL's. Patient and her family are allowed to begin the bonding experience in the LDR.
[2019-01-04] MEDS ORDERED: Acetaminophen-Codeine 300-30mg TAB PO PRN (11:04)
[2019-01-04] MEDS ORDERED: OXYTOCIN 20 UNITS/1000 ML NS 1,000 ML IV SCH (11:15)
[2019-01-04] MEDS: IBUPROFEN 600 MG TAB PO PRN ×2 (16:10→23:37)
[2019-01-05] MEDS: SENNOSIDES-DOCUSATE SODIUM 1 EACH TAB PO SCH ×3 (01:38→20:56)
[2019-01-05 06:44] LABS: Basophils % (A) 0 %; Eosinophils # (A) 0.2 k/uL (0-0.7); Eosinophils % (A) 1 %; HCT 31.6 % (34.0-46.0); HGB 10.7 gm/dL (11.4-16.0); Lymphocytes # (A) 2.6 k/uL (1.0-4.8); Lymphocytes % (A) 18 %; MCH 31.7 pg (25.0-35.0); MCHC 33.7 g/dL (31.0-37.0); MCV 94.2 fL (80.0-100.0); Mean Platelet Volume 7.8; Monocytes # (A) 0.6 k/uL (0-1.0); Monocytes % (A) 4 %; Neutrophils # (A) 10.6 k/uL (1.3-7.7); Neutrophils % (A) 75 %; Platelet Count 253 k/uL (150-450); RBC 3.36 m/uL (3.80-5.40); RDW 14.3 % (11.5-15.5); WBC 14.2 k/uL (3.8-10.6)
[2019-01-05] MEDS: IBUPROFEN 600 MG TAB PO PRN ×3 (08:05→20:56)
--- NOTE | 2019-01-05 08:19 | P.PN ---
Subjective Progress Note Date: 01/05/19 Principal diagnosis: day #1 Slept well. Baby on antibiotics for positive group B strep history. Patient declining discharge home today Objective - Vital Signs Vital signs: Vital Signs Temp 98 F 01/05/19 08:00 Pulse 72 01/05/19 08:00 Resp 16 01/05/19 08:00 BP 135/79 01/05/19 08:00 Pulse Ox 99 01/04/19 20:00 Intake & Output 01/04/19 01/05/19 01/05/19 18:59 06:59 18:59 Output Total 250 Balance -250 Output: Estimated Blood Loss 250 Other: # Voids 1 2 2 - Constitutional General appearance: Present: average body habitus, cooperative - EENT Eyes: Present: PERRLA ENT: Present: hearing grossly normal - Neck Neck: Present: normal ROM Thyroid: bilateral: normal size - Respiratory Respiratory: bilateral: CTA - Cardiovascular Rhythm: regular - Gastrointestinal General gastrointestinal: Present: normal bowel sounds - Genitourinary Genitourinary Comment(s): Fundus firm, midline, symmetric, 18 week size. - Integumentary Integumentary: Present: normal - Neurologic Neurologic: Present: CNII-XII intact - Musculoskeletal Musculoskeletal: Present: gait normal, strength equal bilaterally - Labs CBC & Chem 7: 01/05/19 06:31 Labs: Abnormal Lab Results - Last 24 Hours (Table) 01/05/19 Range/Units 06:31 WBC 14.2 H (3.8-10.6) k/uL RBC 3.36 L (3.80-5.40) m/uL Hgb 10.7 L (11.4-16.0) gm/dL Hct 31.6 L (34.0-46.0) % Neutrophils # 10.6 H (1.3-7.7) k/uL Assessment and Plan Assessment: Doing well day #1. Baby on antibiotics for positive group B strep history. Patient doing well. Plan: Discharge home tomorrow. Follow-up with me in the office in 6 weeks. Discharge instructions reviewed. Time with Patient: Less than 30
[2019-01-06] MEDS: IBUPROFEN 600 MG TAB PO PRN ×2 (08:49→14:06)
[2019-01-06] MEDS: SENNOSIDES-DOCUSATE SODIUM 1 EACH TAB PO SCH (08:49)
[2019-01-06 09:11] VITALS: RESP 16
--- NOTE | 2019-01-06 09:39 | P.DS ---
Providers Date of admission: 01/04/19 06:10 Expected date of discharge: 01/06/19 Attending physician: Kamila Monterroso Primary care physician: Stated None - Discharge Diagnosis(es) (1) Term Current Visit: Yes Status: Acute (2) Positive GBS test Current Visit: Yes Status: Acute (3) Status post vaginal delivery Current Visit: Yes Status: Acute Hospital Course: This is a 28-year-old 2 para 1001 with an estimated due date of 01/07 that presented to labor and delivery at 39-3/7 weeks for elective induction of labor. Patient had a favorable her cervix at that time. Patient's care has been uneventful. She had been struggling with 2 enlarged external hemorrhoids that were nonthrombosed. On cervical exam on admission she was 4/70/-2 with a vertex presentation. Patient was admitted to labor and delivery and Pitocin induction of labor was begun per protocol. Antibiotics were started as well for group beta strep prophylaxis. Patient underwent amniotomy and clear fluid was obtained. Throughout labor and epidural was placed by anesthesia without difficulty. Patient progressed to complete began pushing and had a normal spontaneous vaginal delivery of a viable female at 1048, Apgars of 9 and 9 at one and 5 minutes respectively. Weight of 7 lbs. 3 oz. Patient's post course has been uneventful. On this day #2 she is ambulating and voiding without difficulty. She is tolerating a regular diet without nausea or vomiting. She denies concerns and is ready for discharged home. Of note the infant is a bili blanket and we are awaiting a blood draw for possible discharge versus staying for treatment for jaundice. Patient Condition at Discharge: Good Plan - Discharge Summary New Discharge Prescriptions: No Action Cbo-Fmij-Lcpms Acid [-U Capsule (formulary)] 1 cap PO DAILY Calcium Carbonate [Tums] 500 mg PO TID Acetaminophen [Tylenol] 650 mg PO Q4H Hydrocortisone Cream [Hydrocortisone 2.5% Cream] 1 applic TOPICAL DIRECTED PRN PRN Reason: Pain Acetaminophen with Codeine [Tylenol w/codeine #3] 1 tablet PO Q6HR PRN PRN Reason: Pain Discharge Medication List Aud-Gmcy-Pczvn Acid [-U Capsule (formulary)] 1 cap PO DAILY 06/07/18 [History] Calcium Carbonate [Tums] 500 mg PO TID 12/12/18 [History] Acetaminophen [Tylenol] 650 mg PO Q4H 01/01/19 [History] Hydrocortisone Cream [Hydrocortisone 2.5% Cream] 1 applic TOPICAL DIRECTED PRN 01/01/19 [History] Acetaminophen with Codeine [Tylenol w/codeine #3] 1 tablet PO Q6HR PRN 01/04/19 [History] Follow up Appointment(s)/Referral(s): Kamila Monterroso MD [STAFF PHYSICIAN] - 6 Weeks Patient Instructions/Handouts: Vaginal Delivery (DC), Vaginal Delivery (GEN) Discharge Disposition: HOME SELF-CARE
[2019-01-06 17:37] VITALS: BP 133/81; PULSE 84; TEMP 98.1
== END 2019-01-06 19:05 | disposition home or self-care (01) | DRG 806 ==
LOC: 4FBP 06:10
PROVIDERS: ADMIT Obstetrics & Gynecology; ATTEND Obstetrics & Gynecology
PROC: 10E0XZZ Delivery of Products of Conception, External Approach (ICD-10-PCS; principal; 2019-01-04)
PROC: 0HQ9XZZ Repair Perineum Skin, External Approach (ICD-10-PCS; 2019-01-04)
PROC: 00HU33Z Insertion of Infusion Device into Spinal Canal, Percutaneous Approach (ICD-10-PCS; 2019-01-04)
PROC: 3E0R3BZ Introduction of Anesthetic Agent into Spinal Canal, Percutaneous Approach (ICD-10-PCS; 2019-01-04)
PROC: 10907ZC Drainage of Amniotic Fluid, Therapeutic from Products of Conception, Via Natural or Artificial Opening (ICD-10-PCS; 2019-01-04)
PROC: 3E033VJ Introduction of Other Hormone into Peripheral Vein, Percutaneous Approach (ICD-10-PCS; 2019-01-04)
DX: O22.43 Hemorrhoids in pregnancy, third trimester (principal); O99.354 Diseases of the nervous system complicating childbirth; Z37.0 Single live birth; O99.344 Other mental disorders complicating childbirth; O70.0 First degree perineal laceration during delivery; O99.824 Streptococcus B carrier state complicating childbirth; O99.62 Diseases of the digestive system complicating childbirth; F41.9 Anxiety disorder, unspecified; K21.9 Gastro-esophageal reflux disease without esophagitis; G43.909 Migraine, unspecified, not intractable, without status migrainosus; Z3A.39 39 weeks gestation of pregnancy; Z82.3 Family history of stroke; Z82.49 Family history of ischemic heart disease and other diseases of the circulatory system
CPT/HCPCS: 85025; 86850; 86900; 86901

== ENCOUNTER → 2019-12-14 | Outpatient (CLI) | payer OTHER | END | disposition home or self-care (01) | LOC: LABWHC1 11:33 | PROVIDERS: ATTEND Nurse Practitioner Family | DX: Z20.9 Contact with and (suspected) exposure to unspecified communicable disease (principal) | CPT/HCPCS: U0003; C9803 ==

== ENCOUNTER → 2020-03-12 | Outpatient (CLI) | payer OTHER | END | disposition home or self-care (01) | LOC: LABWHC1 13:46 | PROVIDERS: ATTEND Nurse Practitioner Family | DX: Z20.828 Contact with and (suspected) exposure to other viral communicable diseases (principal) | CPT/HCPCS: U0003; C9803 ==

== ENCOUNTER → 2020-08-15 | Outpatient (CLI) | payer OTHER ==
--- NOTE | 2020-08-15 12:36 | P.STRESS ---
- Stress Test Note Stress Test Results/Findings: Exam Performed: stress echo exercise Exam Date: 08/15/20 Reason for Exam: Chest Pain Height: 4 ft 11 in Weight: 79.379 kg Protocol: Vahid Stage: 3 Duration of Exercise: 9:00 Resting Heart Rate: 93 Resting Blood Pressure: 110/77 Maximum Achieved Heart Rate: 191 Maximum Achieved Blood Pressure: 144/64 85% PMHR: 162 100% PMHR: 190 METS: 10.3 Technologist Comment: Stress Test Results/Findings: Baseline heart rate 93 beats a minute, Baseline blood pressure 110/77 mmHg Baseline twelve-lead EKG showed sinus rhythm with normal ST segments Patient exercised on a Vahid protocol for 9 minutes She achieved a peak heart rate of 191 beats a minute Normal blood pressure response There was no ECG evidence for ischemia No arrhythmias noted Impression Good exercise capacity, no ECG evidence for ischemia or arrhythmia
== END | disposition home or self-care (01) ==
LOC: RADNMMAIN 10:03
PROVIDERS: ATTEND Family Medicine
DX: R07.9 Chest pain, unspecified (principal)
CPT/HCPCS: 93225; 93226; 93351

== ENCOUNTER → 2020-09-26 | Outpatient (CLI) | payer OTHER | END | disposition home or self-care (01) | LOC: LABWHC1 07:30 | PROVIDERS: ATTEND Internal Medicine | DX: O92.6 Galactorrhea (principal); R63.5 Abnormal weight gain | CPT/HCPCS: 36415; 82024; 82533 ==

== ENCOUNTER → 2021-04-04 | Outpatient (CLI) | payer OTHER | END | disposition home or self-care (01) | LOC: LABWHC1 23:47 | PROVIDERS: ATTEND Nurse Practitioner | DX: Z20.822 Contact with and (suspected) exposure to COVID-19 (principal) | CPT/HCPCS: 87635 ==

== ENCOUNTER 2024-09-04 05:54 | Inpatient (IN) | payer BC ==
[2024-09-04] MEDS ORDERED: METHYLERGONOVINE 0.2 MG/ML 1 ML AMP IM PRN (06:08)
[2024-09-04] MEDS ORDERED: TRANEXAMIC 1,000 MG/100ML-NACL 1,000 MG in EMPTY BAG 1 BAG IV PRN (06:08)
[2024-09-04] MEDS ORDERED: TERBUTALINE 1 MG/ML VIAL SQ PRN (06:08)
[2024-09-04] MEDS ORDERED: OXYTOCIN 10 UNIT/ML 1 ML VIAL IM PRN (06:08)
[2024-09-04] MEDS ORDERED: LIDOCAINE 0.5% (PF) 5 MG/ML (50 ML SDV) SQ PRN (06:08)
[2024-09-04] MEDS ORDERED: miSOPROStoL 200 MCG TAB RECTAL PRN (06:08)
[2024-09-04] MEDS ORDERED: miSOPROStoL 200 MCG TAB PO PRN (06:08)
[2024-09-04] MEDS ORDERED: CARBOPROST TROMETHAMINE 250 MCG/ML 1 ML AMP IM PRN (06:08)
[2024-09-04] MEDS ORDERED: OXYTOCIN 30 UNITS/500 ML NS 30 UNIT in SALINE 1 500ML.BAG IV SCH (06:15)
[2024-09-04] MEDS: LACTATED RINGERS 1,000 ML IV SCH (06:29)
[2024-09-04 06:30] LABS: Glucose,Whole Blood 110 mg/dL (70-110)
[2024-09-04] MEDS: OXYTOCIN 30 UNITS/500 ML NS 30 UNIT in SALINE 1 500ML.BAG IV SCH (06:33)
[2024-09-04 06:55] LABS: Basophils # (A) 0.05 10*3/uL (0.00-0.10); Basophils % (A) 0.4 %; Eosinophils # (A) 0.17 10*3/uL (0.04-0.35); Eosinophils % (A) 1.3 %; HCT 30.1 % (37.2-46.3); Lymphocytes # (A) 2.65 10*3/uL (0.90-5.00); Lymphocytes % (A) 20.4 %; MCH 29.9 pg (27.0-32.0); MCHC 33.2 g/dL (32.0-37.0); MCV 90.1 fL (80.0-97.0); Mean Platelet Volume 10.6 fL (9.5-12.2); Monocytes # (A) 0.78 10*3/uL (0.20-1.00); Neutrophils # (A) 9.24 10*3/uL (1.80-7.70); Neutrophils % (A) 71.1 %; Platelet Count 212 10*3/uL (140-440); RBC 3.34 10*6/uL (4.10-5.20); WBC 12.99 10*3/uL (4.50-10.00)
[2024-09-04] MEDS: CALCIUM CARBONATE 500 MG CHEWABLE PO PRN (09:01)
[2024-09-04] MEDS ORDERED: SODIUM CHLORIDE 0.9% 250 ML BAG ONE (09:52)
[2024-09-04] MEDS ORDERED: ROPIVACAINE 5 MG/ML 30 ML VIAL ONE (09:52)
[2024-09-04] MEDS ORDERED: fentaNYL (PF) 50 MCG/ML 5 ML AMP ONE (09:52)
[2024-09-04] MEDS ORDERED: diphenhydrAMINE 50 MG CAP PO PRN (12:00)
[2024-09-04] MEDS ORDERED: SIMETHICONE 80 MG CHEWABLE PO PRN (12:00)
[2024-09-04] MEDS ORDERED: LANOLIN CREAM 1 GM TUBE TOPICAL PRN (12:00)
[2024-09-04] MEDS ORDERED: HYDROCORTISONE 2.5% RECTAL CREAM 30 GM TUBE RECTAL PRN (12:00)
[2024-09-04] MEDS ORDERED: ZOLPIDEM 5 MG TAB PO PRN (12:00)
[2024-09-04] MEDS ORDERED: diphenhydrAMINE 50 MG/ML 1 ML VIAL IVP PRN ×2 (12:00)
[2024-09-04] MEDS ORDERED: diphenhydrAMINE 25 MG CAP PO PRN (12:00)
[2024-09-04] MEDS ORDERED: BENZOCAINE/MENTHOL SPRAY 1 GM/SPRAY AEROSOL TOPICAL PRN (12:00)
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
--- NOTE | 2024-09-04 12:14 | P.PROBDLV ---
Vaginal Delivery Note - . Vaginal Delivery Note: Date of service 09/04/2024 Findings viable female delivered at 1143, weight of 6 pounds 7 ounces, Apgars of 9 and 9 at 1 and 5 minutes respectively. Body cord was noted x 3 loose and delivered through. 34-year-old at 39-4/7 weeks presents for induction of labor. Patient is admitted Pitocin induction of labor is begun. Patient underwent amniotomy clear fluid was obtained. Patient progressed to labor eventually coming uncomfortable and requesting epidural. Epidural was placed without difficulty by the anesthesia department. Patient made good progress toward complete dilation. Once completely dilated patient began pushing and had a normal spontaneous vaginal delivery of viable female infant. Weight of 6-7 at 1143. After 2- minute delay the umbilical cord was doubly clamped and cut, spontaneous cry was noted at . Placenta was delivered spontaneously intact with a three-vessel cord being noted. Uterus was noted to be firm and below the umbilicus. All counts were to be correct x 2 at the end of delivery. Patient and tolerated delivery well and are resting comfortably.
[2024-09-04] MEDS: IBUPROFEN 800 MG TAB PO SCH (13:27)
[2024-09-04] MEDS: ACETAMINOPHEN TAB 500 MG TAB PO SCH (13:41)
[2024-09-04] MEDS: SENNOSIDES-DOCUSATE SODIUM 1 EACH TAB PO SCH (19:52)
--- NOTE | 2024-09-05 08:41 | P.DS ---
Providers Date of admission: 09/04/24 05:54 Expected date of discharge: 09/05/24 Attending physician: Jessica Vinson Primary care physician: Stated None - Discharge Diagnosis(es) (1) Term Current Visit: No Status: Acute (2) Status post vaginal delivery Current Visit: No Status: Acute Hospital Course: 34-year-old 3 now para 3 that presented to labor and delivery for induction of labor on 09/04. For full details of this patient please see the dictated history and physical. Patient was admitted and Pitocin induction of labor was begun. Patient underwent amniotomy clear fluid was obtained. Patient did request an epidural which was placed without difficulty by the anesthesia department. Patient had minimal pain relief from the epidural progressed quickly to complete began pushing and had a normal spontaneous vaginal delivery of a viable female infant at 1143, weight of 6 pounds 10 ounces. No vaginal lacerations were appreciated at the time of delivery. Patient's course has been uneventful. This day #1 she is ambulating and voiding without difficulty. She is tolerating regular diet without nausea or vomiting. States her pain is well-controlled. She denies concerns. She would like discharge home at 24 hours. Patient Condition at Discharge: Good Plan - Discharge Summary New Discharge Prescriptions: No Action Aspirin 81 mg PO DAILY Pedi Mv No.227/Ferrous Sulfate [Flintstones Complete Chew Tab] 10 mg PO DAILY Discharge Medication List Aspirin 81 mg PO DAILY 05/29/24 [History] Pedi Mv No.227/Ferrous Sulfate [Flintstones Complete Chew Tab] 10 mg PO DAILY 05/29/24 [History] Follow up Appointment(s)/Referral(s): Jessica Vinson DO [Doctor of Osteopathic Medicine] - 10/15/24 11:30 am Patient Instructions/Handouts: Vaginal Delivery (GEN), Vaginal Delivery (DC) Activity/Diet/Wound Care/Special Instructions: No tub baths or intercourse until 6 weeks . [id number] ibuprofen 600 milligrams or 3 tablets every 6 hours as needed for pain. Routine check at 6 weeks. Should she have any concerns prior to this appointment she is urged to call the office and be seen prior. Discharge Disposition: HOME SELF-CARE
[2024-09-05 08:44] VITALS: BP 140/88; PULSE 88; RESP 18; TEMP 98.2
== END 2024-09-05 12:31 | disposition home or self-care (01) | DRG 807 ==
LOC: 4FBP 05:54
PROVIDERS: ADMIT Obstetrics & Gynecology Obstetrics; ATTEND Obstetrics & Gynecology Obstetrics
PROC: 10E0XZZ Delivery of Products of Conception, External Approach (ICD-10-PCS; principal; 2024-09-04)
PROC: 3E033VJ Introduction of Other Hormone into Peripheral Vein, Percutaneous Approach (ICD-10-PCS; principal; 2024-09-04)
PROC: 10907ZC Drainage of Amniotic Fluid, Therapeutic from Products of Conception, Via Natural or Artificial Opening (ICD-10-PCS; principal; 2024-09-04)
DX: O24.420 Gestational diabetes mellitus in childbirth, diet controlled (principal); O99.344 Other mental disorders complicating childbirth; F41.9 Anxiety disorder, unspecified; O99.52 Diseases of the respiratory system complicating childbirth; O69.89X0 Labor and delivery complicated by other cord complications, not applicable or unspecified; J45.909 Unspecified asthma, uncomplicated; F90.9 Attention-deficit hyperactivity disorder, unspecified type; Z79.82 Long term (current) use of aspirin; Z3A.39 39 weeks gestation of pregnancy; Z37.0 Single live birth
CPT/HCPCS: 85025; 86850; 86900; 86901